=== PATIENT | female | born 1960 ===

== ENCOUNTER → 2025-04-25 10:03 | Outpatient (REF) | payer OTHER, SELFPAY | LOC: RAD 10:03 | PROVIDERS: ATTENDING PHYSICIAN Internal Medicine Cardiovascular Disease; FAMILY PHYSICIAN Internal Medicine | DX: R94.39 Abnormal result of other cardiovascular function study (principal); R06.09 Other forms of dyspnea; R07.9 Chest pain, unspecified | CPT/HCPCS: 75574; Q9967 ==